=== PATIENT | female | born 1990 | race Caucasian/White ===

== ENCOUNTER 2021-07-02 08:09 | Outpatient (CLI) | payer OTHER, SELFPAY ==
--- NOTE | ~2021-07-02 | US_ITS ---
EXAMINATION: US soft tissue LE LT DATE: 07/02/2021 08:39 INDICATION: Localized swelling/mass at the lateral left thigh TECHNIQUE: Multiple grayscale and Doppler ultrasound images of the region of concern at the lateral l eft thigh were obtained. COMPARISON: None FINDINGS: Normal appearance to the subcutaneous fat and underlying musculature at the region of concern. No abn ormal masses or fluid collections identified. IMPRESSION: 1. Normal study. No abnormal mass or fluid collection is identified at the region of concern. Reviewed, dictated and finalized at location H. APPLIANCE TECH IMPRESSION: 1. Normal study. No abnormal mass or fluid collection is identified at the ariana on of concern.
== END 2021-07-02 08:10 ==
PROVIDERS: PCP Nurse Practitioner Family; Visit Provider Nurse Practitioner Family
DX: R22.42 Localized swelling, mass and lump, left lower limb (principal)
CPT/HCPCS: 76882

== ENCOUNTER 2021-08-21 08:34 | Outpatient (CLI) | payer OTHER, SELFPAY ==
--- NOTE | ~2021-08-21 | US_ITS ---
EXAMINATION: US breast BI limited HISTORY: Pain in the upper outer quadrant of the right breast and upper left breast at 12:00 location TECHNIQUE: Limited bilateral breast ultrasound is performed. FINDINGS: There is no evidence of focal abnormal cystic or solid mass in the vicinity of the area of the patient's breast pain. A benign right axillary lymph node is noted. IMPRESSION: No suspicious sonographic correlate is identified for the patient's breast pain. Further evaluation a t this time should be based on clinical assessment. Continued follow-up physical examination is recom mended. BI-RADS Category 1: Negative Reviewed, dictated and finalized at location A. ATOR SENIOR CLINICAL IMPRESSION: No suspicious sonographic correlate is identified for the patient's breast pain . Further evaluation at this time should be based on clinical assessment. Lisa nued follow-up physical examination is recommended. BI-RADS Category 1: Negative
== END 2021-08-21 08:35 ==
PROVIDERS: Visit Provider Obstetrics & Gynecology
DX: N64.4 Mastodynia (principal)
CPT/HCPCS: 76642

== ENCOUNTER 2021-11-24 07:56 | Outpatient (CLI) | payer OTHER, SELFPAY | END 2021-11-24 07:57 | disposition home or self-care (01) | PROVIDERS: PCP Nurse Practitioner Family; Visit Provider Urology | DX: N39.3 Stress incontinence (female) (male) (principal); Z01.818 Encounter for other preprocedural examination | CPT/HCPCS: 87086 ==

== ENCOUNTER 2021-11-27 00:54 | Day surgery (SDC) | payer OTHER, SELFPAY ==
--- NOTE | 2021-11-21 11:52 | PM.IMHP ---
H&P: HPI History of Present Illness Date/Time: 11/21/21 11:52 31 yo with BETH Chief Complaint: BETH Review of Systems Review of Systems: All systems reviewed & are unremarkable except as noted in HPI and below Meds Home Medications and Allergies Allergies Allergy/AdvReac Type Severity Reaction Status Date / Time lemon Allergy Unknown THROAT Verified 05/01/19 11:06 ITCHING, RASH Exam Narrative: NAD normal breathing + urethral mobility Assessment and Plan Assessment and plan (1) BETH (stress urinary incontinence, female): Code(s): N39.3 - Stress incontinence (female) (male) Status: Acute
[2021-11-23 14:11] VITALS: BMI 30.5
--- NOTE | 2021-11-23 15:18 | SUR.PREOP ---
Report to the Outpatient Waiting Room, entrance under the green pavilion located off [facility], at time 0600 on date 11/27/21. OR Time: 0730. - You and your visitor will be asked a series of questions to screen for COVID 19 for your protection. - Only one visitor is allowed at this time. - The patient visitor is requested to leave or wait in car when not with patient. - A mask is required within the hospital. Patients may have clear liquids (water, carbonated beverages, clear teas, apple juice) until 3 hours prior to surgery with a maximum of 20 ounces. - No food from midnight until time of surgery - Infants may have breast milk until 4 hours before surgery, formula 6 hours prior to surgery. - Children will be allowed to drink immediately following surgery. If applicable, please bring a bottle or sippy cup to assist with drinking. Juice, water, soda, and popsicles are readily available. For infants on formula, please bring formula the day of surgery. Pacifiers are allowed. Take the following medications with a SIP of water the morning of surgery: ESCITALOPRAM Medications to discontinue per physician: VITAMINES AND SUPPLIMENTS TO STOP 3 DAYS BEFORE YOUR SURGERY. Date to take last dose 11/24/21 Please no make-up, nail upper sorbian, hairspray, perfume, deodorant, or body powder the day of surgery. No jewelry (including any body piercings) or valuables the day of surgery, leave them at home. Please take a shower or bath the night before, or the morning of, surgery with an antibacterial soap. Wear comfortable, loose fitting clothing. Children are encouraged to wear pajamas. - Jewelry must be removed prior to entering the operating room. Rings and piercings that are not removed may be cut off. - The hospital will not accept responsibility for valuables. - Please leave all valuables, including medications, at home the day of surgery. If you are going home after surgery, a licensed mule driver must drive you home. - NO public transportation without another adult. - We recommend that an adult stay with you for 24 hours following discharge. - We also recommend that you do not drive, make important decision, drink alcoholic beverages, or take any drugs that were not prescribed by your health care provider for at least 24 hours after your discharge time. For Pediatric surgeries, we recommend two adults accompany the child home (only one inside the building at this time). Follow any additional instructions given to you from your surgeon. If you or anyone in your household have experienced Covid symptoms in the past week, please notify your surgeon or the nurse liaison at the phone number below for possible testing. Telephone instructions given to GLORIA WEBSTER and asked if any additional questions and then verbalized understanding. Patient advised to call surgeon office or pre surgery nurse liaison [phone] if any additional questions.
--- NOTE | 2021-11-26 13:26 | P.PNAN_ITS ---
Anes - Initial Pre Proc Eval Procedure: Operation Date: 11/27/21 07:30 Proposed Procedures p Urethral Sling - Caleb Lopez MD Date/Time: 11/26/21 13:26 Surgeon: Caleb Lopez MD Pre Op Diagnosis: Stress Incont Patient Data Age: 31 Gender: F Height: 1.61 m Weight: 79.38 kg Allergies Allergy/AdvReac Type Severity Reaction Status Date / Time lemon Allergy Unknown THROAT Verified 11/23/21 14:42 ITCHING, RASH Home Medications Medication Instructions Recorded Confirmed Type ergocalciferol (vitamin D2) 50,000 unit PO WEEKLY 11/23/21 11/23/21 History escitalopram oxalate 20 mg PO DAILY 11/23/21 11/23/21 History Patient hx anesthesia problems: none Family hx anesthesia problems: none Results Review: All pre-operative results and documents have been reviewed as part of the pre-operative evaluation. PMFSH Past Medical History Medical History (Updated 11/26/21 @ 13:27 by Don Menezes MD) Anxiety Obesity Social History Social History Years smoked: 10 Smoking status: Current every day smoker Tobacco type: cigarettes Substance use type: marijuana Living arrangements: with family Spiritual care concerns: No Anes - Eval Final PreProcedure Day of Procedure 11/26/21 13:26 Patient weight: obese Heart: regular rate and rhythm Lungs: clear to auscultation and normal air movement Airway: Mallampati scale class II Neurological: alert and oriented Last oral intake: >/= 8 hours ASA classification: II Emergent: no Anesthetic plan: proceed Anesthesia type and monitoring: general LMA Results Review: All pre-operative results and documents have been reviewed as pa rt of the pre-operative evaluation. Informed Consent: The patient's anesthetic plan and its attendant risks and benefits were discussed with the patient/family/POA. Questions were solicited and answers provided to the satisfaction of the patient/family/POA.
[2021-11-27] MEDS: LACTATED RINGERS 1,000 ML 30 ML IV CONT ×2 (06:30→09:05)
--- NOTE | 2021-11-27 07:15 | WPDHPUPDATE1 ---
History and Physical Update Update Date/Time: 11/27/21 07:15 History and Physical has been reviewed, including an updated exam of the patient. There are NO changes in the patient's condition. Risks, benefits, and alternatives have been discussed and questions answered. Patient agrees to proceed with procedure.
[2021-11-27] MEDS: ceFAZolin 2 GM/D5W 50 ML 2 GM/50 ML BAG IVPB (07:29)
[2021-11-27 07:40] VITALS: BP 109/65; PULSE 71; RESP 14; TEMP 36.8; O2SAT 98
[2021-11-27] MEDS: LIDO 2%/EPINEPHRINE 1:100,000 20 ML VIAL INFILTRATE (07:44)
[2021-11-27 08:02] VITALS: BP 103/62; PULSE 66; RESP 14; O2SAT 100
--- NOTE | 2021-11-27 08:20 | W.PM.PROC2 ---
Procedure Note - Detailed Date of Procedure 11/27/21 Pre-op Diagnosis Stress Incont Post-op Diagnosis Same Procedure Performed mid urethral sling cystoscopy Surgeon Caleb Lopez MD Anesthesia MAC Indications This is a female with confirm stress urinary incontinence. She desires surgical correction. She understands the risks of bleeding, infection, injury to the urinary tract, vaginal mesh extrusion, urinary tract mesh erosion, obstructive voiding requiring a secondary procedure, hip and leg pain, dyspareunia, inability to improve overactive bladder symptoms. She agrees to proceed. Description of Procedure She was correctly identified. Informed consent obtained. She was brought the operating room. She was given appropriate anesthesia. She was given appropriate perioperative antibiotics. A time-out performed. I marked out the site of the inner thigh incisions. I anesthetized the skin and made those incisions. I anesthetized the anterior vaginal wall over the mid urethra. I made a 1 cm incision. I dissected out laterally taking great care not to injure the refilled vaginal wall. I passed the helical trocars. First on the left. Then on the right. I did this from the thigh incision towards the vaginal incision. The sling was connected to the trocars and brought out through the thigh incision. I tensioned the sling appropriately. I cut and the plastic sheaths. I then closed the incision with 2 0 Vicryl. On cystoscopy there is no tumors or surgical artifact. There was no surgical artifact in the urethra. I cut the excess sling material. Close incisions with glue. She was awakened and transferred to the PACU in stable condition. Implants Urethral sling Estimated Blood Loss 20 Drains No Packing No Pathology None sent Complications No immediate complications Condition Stable Disposition PACU
[2021-11-27 08:30] VITALS: BP 96/58; PULSE 57; RESP 20
[2021-11-27 09:00] VITALS: BP 102/63; PULSE 51; RESP 20
[2021-11-27 09:30] VITALS: BP 103/55; PULSE 56; RESP 20
== END 2021-11-27 09:35 | disposition home or self-care (01) ==
PROVIDERS: PCP Nurse Practitioner Family; Visit Provider Urology
PROC: (CPT 57288; principal; 2021-11-27 07:30)
DX: N39.3 Stress incontinence (female) (male) (principal); F41.9 Anxiety disorder, unspecified; E66.9 Obesity, unspecified; Z68.31 Body mass index [BMI] 31.0-31.9, adult
CPT/HCPCS: 57288; 87086; A9270; C1771; J0690; J2250; J2704; J3010; J7030; J7120

== ENCOUNTER 2021-12-26 01:44 | Emergency (ER) | payer SELFPAY ==
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
[2021-12-26 01:56] VITALS: BP 116/80; PULSE 90; RESP 20; O2SAT 98
[2021-12-26 02:02] VITALS: BP 116/80; PULSE 83; RESP 18; O2SAT 97
[2021-12-26] MEDS: ACETAMINOPHEN 500 MG TABLET 1000 MG PO (02:34)
[2021-12-26] MEDS: TETANUS/DIPHTHERIA TOXOIDS ADSORB 0.5 ML VIAL (*BKC) IM (02:36)
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
[2021-12-26] MEDS: LIDOCAINE HCL 1% LOCAL INJ 20 ML VIAL 5 ML INFILTRATE (03:50)
[2021-12-26 04:47] VITALS: BP 116/80
== END 2021-12-26 04:40 | disposition home or self-care (01) ==
PROVIDERS: Emergency Provider Emergency Medicine
DX: S06.9X9A Unspecified intracranial injury with loss of consciousness of unspecified duration, initial encounter (principal); S01.81XA Laceration without foreign body of other part of head, initial encounter; Z23 Encounter for immunization; Y04.2XXA Assault by strike against or bumped into by another person, initial encounter
CPT/HCPCS: 12011; 70450; 90471; 90714; 99284; A9270

== ENCOUNTER 2024-08-29 10:27 | Outpatient (CLI) | payer SELFPAY ==
--- NOTE | ~2024-08-29 | XR_ITS ---
Lumbosacral Spine: AP and lateral views Clinical History: Pain Findings: The normal lordotic curve is maintained. No fracture or subluxation seen. There is moderate to advanced degenerative disc narrowing at L4-L5. There is moderate facet arthropathy from L4 throug h S1. The sacroiliac joints are normally outlined. Impression: Moderate degenerative spondylosis at the lower lumbar spine, as above. Reviewed, dictated and finalized at location . ER TROLL LINE Impression: Moderate degenerative spondylosis at the lower lumbar spine, as above.
== END 2024-08-29 10:28 | disposition home or self-care (01) ==
PROVIDERS: PCP Chiropractor Rehabilitation; Visit Provider Chiropractor Rehabilitation
DX: M47.816 Spondylosis without myelopathy or radiculopathy, lumbar region (principal)
CPT/HCPCS: 72100